=== PATIENT | female | born 1965 | race Caucasian/White ===

== ENCOUNTER 2022-09-20 09:11 | Outpatient (CLI) | payer OTHER, SELFPAY ==
--- NOTE | 2022-09-20 09:15 | CRLHL7_ITS ---
For Patients: As a result of the Century Cures Act, medical imaging exams and procedure reports are released immediately into your electronic medical record. You may view this report before your referring provider. If you have questions, please contact your health care provider. BILATERAL SCREENING MAMMOGRAM WITH COMPUTER-AIDED DETECTION AND TOMOSYNTHESIS TECHNIQUE: CC, MLO and Implant displaced views were obtained. These mammographic images have been obtained using full-field digital technique. These mammographic images were interpreted with the benefit of computer-aided detection. Breast Tomosynthesis was used in this interpretation. COMPARISON FILM: 07/13/21, 06/30/20, 06/23/19 FINDINGS: There are scattered areas of fibroglandular density. IMPRESSION: There is no radiographic evidence for malignancy. ASSESSMENT: BI-RADS Category 2: Benign RECOMMENDATION: Routine screening mammogram in 1 year. A lay language report of this examination will be provided to the patient. John Gray M.D. Diagnostic Radiologist [email or web address] Transcribed: 2:05 p.m. PT/Dictated by: John Gray MD @ 09/20/2022 10:37:00 AM (Electronically Signed)
== END 2022-09-20 09:12 | disposition home or self-care (01) ==
LOC: MAMMO 09:12
PROVIDERS: PCP Physician Assistant; Visit Provider Obstetrics & Gynecology
DX: Z12.31 Encounter for screening mammogram for malignant neoplasm of breast (principal)
CPT/HCPCS: 77063; 77067

== ENCOUNTER 2023-09-04 11:00 | Outpatient (RCR) | payer OTHER, SELFPAY ==
[2023-08-29 00:11] LABS: Carcinoembryonic Antigen 1.7 ng/mL (<=3.8)
== END 2024-02-23 23:59 | disposition home or self-care (01) ==
LOC: CCIC 11:00
PROVIDERS: Nurse Practitioner Family; Visit Provider Internal Medicine Hematology & Oncology
DX: C18.7 Malignant neoplasm of sigmoid colon (principal); G47.00 Insomnia, unspecified
CPT/HCPCS: 36415; 82378; 99212; 99214

== ENCOUNTER 2023-10-08 12:51 | Outpatient (CLI) | payer OTHER, SELFPAY ==
--- NOTE | 2023-10-08 13:00 | CRLHL7_ITS ---
For Patients: As a result of the Cures Act, medical imaging exams and procedure reports are released immediately into your electronic medical record. You may view this report before your referring provider. If you have questions, please contact your health care provider. BILATERAL SCREENING MAMMOGRAM WITH COMPUTER-AIDED DETECTION AND TOMOSYNTHESIS TECHNIQUE: CC, MLO and Implant displaced views were obtained. These mammographic images have been obtained using full-field digital technique. These mammographic images were interpreted with the benefit of computer-aided detection. Breast Tomosynthesis was used in this interpretation. COMPARISON FILM: 09/20/22, 07/13/21, 06/30/20 FINDINGS: There are scattered areas of fibroglandular density IMPRESSION: There is no radiographic evidence for malignancy. ASSESSMENT: BI-RADS Category 2: Benign RECOMMENDATION: Routine screening mammogram in 1 year. A lay language report of this examination will be provided to the patient. CORY SARKAR M.D. Diagnostic/Nuclear Medicine Radiologist [email or web address] CRISTIANA:[email or web address] Transcribed: 3:45 p.mKenyetta hernandez/Dictated by: Cory Sarkar MD @ 10/10/2023 9:07:00 AM (Electronically Signed)
== END 2023-10-08 12:52 | disposition home or self-care (01) ==
LOC: MAMMO 12:51
PROVIDERS: Visit Provider Physician Assistant
DX: Z12.31 Encounter for screening mammogram for malignant neoplasm of breast (principal)
CPT/HCPCS: 77063; 77067

== ENCOUNTER 2024-09-08 08:30 | Outpatient (RCR) | payer OTHER, SELFPAY ==
[2024-09-03 11:54] LABS: Carcinoembryonic Antigen 1.8 ng/mL (<=3.8)
== END 2025-02-28 23:59 | disposition home or self-care (01) ==
LOC: CCIC 08:30
PROVIDERS: Visit Provider Internal Medicine Hematology & Oncology
DX: C18.7 Malignant neoplasm of sigmoid colon (principal); G47.00 Insomnia, unspecified
CPT/HCPCS: 36415; 82378; 99213; G0463

== ENCOUNTER 2024-10-13 15:53 | Outpatient (CLI) | payer OTHER, SELFPAY ==
--- NOTE | 2024-10-13 16:00 | CRLHL7_ITS ---
For Patients: As a result of the Century Cures Act, medical imaging exams and procedure reports are released immediately into your electronic medical record. You may view this report before your referring provider. If you have questions, please contact your health care provider. BILATERAL SCREENING MAMMOGRAM WITH COMPUTER-AIDED DETECTION AND TOMOSYNTHESIS TECHNIQUE: CC, MLO and Implant displaced views were obtained. These mammographic images have been obtained using full-field digital technique. These mammographic images were interpreted with the benefit of computer-aided detection. Breast Tomosynthesis was used in this interpretation. COMPARISON FILM: 10/08/23, 09/20/22, 07/13/21. FINDINGS: There are scattered areas of fibroglandular density. IMPRESSION: There is no radiographic evidence for malignancy. ASSESSMENT: BI-RADS Category 2: Benign RECOMMENDATION: Routine screening mammogram in 1 year. A lay language report of this examination will be provided to the patient. John Gray M.D. Diagnostic Radiologist [email or web address] SP/Dictated by: John Gray MD @ 10/14/2024 9:50:00 AM (Electronically Signed)
== END 2024-10-13 15:54 | disposition home or self-care (01) ==
LOC: MAMMO 15:54
PROVIDERS: Visit Provider Physician Assistant
DX: Z12.31 Encounter for screening mammogram for malignant neoplasm of breast (principal); Z98.82 Breast implant status
CPT/HCPCS: 77063; 77067